=== PATIENT | male | born 1965 | race Caucasian/White ===

== ENCOUNTER 2018-08-17 10:53 | Emergency (ER) | payer OTHER ==
[~2018-08-17] VITALS: Ht 190.5 cm; Wt 88.9 kg
[2018-08-17 11:08] VITALS: BP 135/84
[2018-08-17 12:20] VITALS: BP 132/81
[2018-08-17 12:28] LABS: BILIRUBIN,URINE NEGATIVE (NEGATIVE); BLOOD, URINE NEGATIVE (NEGATIVE); COLOR,URINE YELLOW (YELLOW); LEUKOCYTE ESTERASE ,URINE 1+ (NEGATIVE); NITRITE, URINE NEGATIVE (NEGATIVE); UGLUCOSE NEGATIVE (NEGATIVE)
[2018-08-17 12:55] LABS: APPEARANCE,URINE SLIGHTLY HAZY (CLEAR)
[2018-08-17 12:56] LABS: RBC,URINE 0-5 (RARE) /HPF (0-5); WBC,URINE 80-100 /HPF (0-5)
[2018-08-17 12:57] LABS: YEAST,URINE Few /HPF (None Seen)
== END 2018-08-17 12:20 | disposition home or self-care (01) ==
LOC: MED 10:53
DX: R33.9 Retention of urine, unspecified (principal); R30.0 Dysuria; F17.290 Nicotine dependence, other tobacco product, uncomplicated; J44.9 Chronic obstructive pulmonary disease, unspecified; Z87.438 Personal history of other diseases of male genital organs
CPT/HCPCS: 81001; 87086; 99284